=== PATIENT | male | born 1970 | race African-American/Black ===

== ENCOUNTER 2023-04-19 12:01 | Emergency (ER) | payer OTHER ==
[~2023-04-19] VITALS: Ht 177.8 cm; Wt 73.0 kg
[2023-04-19 16:00] VITALS: BP 135/81
[2023-04-19] MEDS ORDERED: CEPHALEXIN 250MG CAPSULE PO ONE (16:00)
[2023-04-19] MEDS ORDERED: IBUPROFEN 600MG TABLET PO ONE (16:00)
[2023-04-19] MEDS ORDERED: IBUP-2029 MT (16:02)
[2023-04-19] MEDS ORDERED: CEPH500T MT (16:02)
== END 2023-04-19 16:10 | disposition home or self-care (01) ==
LOC: ER 12:01
DX: L03.90 Cellulitis, unspecified (principal)
CPT/HCPCS: 99283